=== PATIENT | female | born 1995 | race Two or more races ===

== ENCOUNTER 2017-02-27 03:44 | Outpatient (CLI) | payer MEDICAID ==
[~2017-02-27] VITALS: Ht 160 cm; Wt 75.0 kg
[2017-02-27 04:18] VITALS: BP 118/74
[2017-02-27] MEDS ORDERED: HYDROcodone/APAP 5/325 TABLET ONE (05:13)
[2017-02-27] MEDS ORDERED: DIPHENHYDRAMINE 25 MG CAPSULE ONE (05:13)
[2017-02-27] MEDS ORDERED: DIPHENHYDRAMINE 50 MG CAPSULE PO PRN (05:30)
[2017-02-27] MEDS ORDERED: DIPHENHYDRAMINE 25 MG CAPSULE PO ONE (05:30)
[2017-02-27] MEDS ORDERED: HYDROcodone/APAP 5/325 TABLET PO ONE (05:30)
[2017-03-02] MEDS ORDERED: OXYC-302 PO (11:22)
[2017-03-02] MEDS ORDERED: IBUP-1222 PO (11:23)
[2017-03-02] MEDS ORDERED: DOCU-30 PO (11:23)
[2017-03-02] MEDS ORDERED: ONDA4TAB10 PO (11:24)
== END 2017-02-27 05:35 | disposition home or self-care (01) ==
LOC: LDOP 03:44
PROVIDERS: ATTEND Specialist
DX: O26.893 Other specified pregnancy related conditions, third trimester (principal); R10.9 Unspecified abdominal pain; Z3A.39 39 weeks gestation of pregnancy
CPT/HCPCS: 59025; 99211; Q0163; G0463

== ENCOUNTER → 2017-08-19 | Outpatient (CLI) | payer MEDICAID ==
[~2017-08-19] MED LIST: DOCU-131 PO; IBUP-1222 PO; ONDA4TAB10 PO; OXYC-302 PO
== END | disposition home or self-care (01) ==
LOC: CFH 14:56
PROVIDERS: ATTEND Emergency Medicine
DX: N83.202 Unspecified ovarian cyst, left side (principal); Z97.5 Presence of (intrauterine) contraceptive device
CPT/HCPCS: 76856